=== PATIENT | female | born 1990 | race Hispanic/Latino ===

== ENCOUNTER 2017-11-07 02:44 | Emergency (ER) | payer SELFPAY ==
[~2017-11-07] VITALS: Ht 154.9 cm; Wt 72.6 kg
== END 2017-11-07 03:05 | disposition home or self-care (01) ==
LOC: ER 02:44
DX: M54.2 Cervicalgia (principal); S13.4XXA Sprain of ligaments of cervical spine, initial encounter; S23.3XXA Sprain of ligaments of thoracic spine, initial encounter; V43.52XA Car driver injured in collision with other type car in traffic accident, initial encounter; Y92.488 Other paved roadways as the place of occurrence of the external cause
CPT/HCPCS: 99282